=== PATIENT | female | born 1995 | race Caucasian/White ===

== ENCOUNTER → 2021-02-23 | Day surgery (SDC) | payer OTHER ==
[~2021-02-23] MED LIST: ABILIFY10 MG PO; PRISTIQ 50 MG T50 MG PO; PROTONIX 40 MG40 M1 PO
== END | disposition home or self-care (01) ==
LOC: OR 02-09 08:15
DX: K29.50 Unspecified chronic gastritis without bleeding (principal); K44.9 Diaphragmatic hernia without obstruction or gangrene; F17.220 Nicotine dependence, chewing tobacco, uncomplicated; Z79.899 Other long term (current) drug therapy; Z20.822 Contact with and (suspected) exposure to COVID-19
CPT/HCPCS: 84703; J2704; J7120